=== PATIENT | female | born 1980 | race Caucasian/White ===

== ENCOUNTER 2019-03-13 13:08 | Emergency (ER) | payer SELFPAY ==
[~2019-03-13] VITALS: Ht 162.6 cm; Wt 48.6 kg
[2019-03-13 13:15] VITALS: Ht 162.6 cm; Wt 48.6 kg
[2019-03-13 13:36] LABS: HCG URINE NEGATIVE (NEGATIVE)
[2019-03-13 13:39] LABS: BASOPHILS 0.3 % (0-2); EOSINOPHILS 3.1 % (0-7); HEMOGLOBIN 15.1 g/dL (12-16); IMMATURE GRANULOCYTES 0.2 % (0-5); LYMPHOCYTES 47.9 % (15-50); MCH 31.3 pg (26.0-34.0); MCHC 32.8 g/dL (31.0-37.0); MCV 95.2 fL (80.0-100.0); MEAN PLATELET VOLUME 11.2 fL (7.4-10.4); MONOCYTES 2.7 % (2-11); NEUTROPHILS 45.8 % (40-80); PLATELET COUNT 209 10x3/uL (130-400); RBC 4.83 10x6/uL (4.00-5.40); RDW 14.7 % (11.5-14.5); WBC 9.2 10x3/uL (4.8-10.8)
[2019-03-13 13:40] LABS: UDS - AMPHET NEGATIVE QUAL (NEGATIVE); UDS - BARB NEGATIVE QUAL (NEGATIVE); UDS - BENZO NEGATIVE QUAL (NEGATIVE); UDS - COCAINE POSITIVE QUAL (NEGATIVE); UDS - OPIATE NEGATIVE QUAL (NEGATIVE); UDS - PCP NEGATIVE QUAL (NEGATIVE); UDS - THC POSITIVE QUAL (NEGATIVE)
[2019-03-13 13:52] LABS: CALC OSMOLALITY 282 mosm/kg (275-300); CALCIUM 8.8 mg/dL (8.5-10.1); CARBON DIOXIDE 29.7 mmol/L (21.0-32.0); CHLORIDE - SERUM 103 mmol/L (98-107); CREATININE - SERUM 0.8 mg/dL (0.6-1.3); GLUCOSE 153 mg/dL (74-106); POTASSIUM - SERUM 4.3 mmol/L (3.5-5.1); SODIUM 141 mmol/L (136-145); UREA NITROGEN 10 mg/dL (7-18); eGFR NON AFRICAN AMERICAN 85 mL/min (90-120)
[2019-03-13 13:59] LABS: ALBUMIN 3.9 g/dL (3.4-5.0); ALKALINE PHOSPHATASE 71 U/L (46-116); ALT (SGPT) 18 U/L (10-68); BILIRUBIN - TOTAL 0.34 mg/dL (0.2-1.3); PROTEIN - SERUM 7.3 g/dL (6.4-8.2)
[2019-03-13 14:04] LABS: AMORPHOUS SEDIMENT >1+ /lpf (NONE SEEN); APPEARANCE CLEAR (CLEAR); BACTERIA FEW /hpf (NEGATIVE); BILIRUBIN NEGATIVE (NEGATIVE); COLOR YELLOW (YELLOW); EPITHELIAL CELLS 0-5 /hpf (0-5); GLUCOSE NEGATIVE (NEGATIVE); KETONE NEGATIVE (NEGATIVE); MUCUS >1+ /lpf (NONE SEEN); NITRITE NEGATIVE (NEGATIVE); PROTEIN 1+ mg/dL (NEGATIVE); RED CELLS - URINE 0-5 /hpf (0-5); UROBILINOGEN NORMAL (NORMAL); WHITE CELLS - URINE 0-5 /hpf (NEGATIVE)
[2019-03-13 15:02] VITALS: BP 105/73
== END 2019-03-13 15:03 | disposition home or self-care (01) ==
LOC: D.ER 13:08
PROVIDERS: Family Medicine
DX: R55 Syncope and collapse (principal); W19.XXXA Unspecified fall, initial encounter; F17.210 Nicotine dependence, cigarettes, uncomplicated

== ENCOUNTER 2020-08-03 21:42 | Inpatient (IN) | payer MEDICAID ==
[~2020-08-03] VITALS: Ht 162.6 cm; Wt 106.6 kg
--- NOTE | 2020-08-03 21:55 | NUR ---
PT IN WHEELCHAIR IN WAITING ROOM, NOTED APNEIC AND HARDLY AROUSABLE TO TACTILE STIMULI. EDP BROUGHT TO BEDSIDE. FAMILY REPORTS SHE TOOK OXYCODONE AND XANAX. PT BROUGHT BACK TO TRAUMA ROOM AT THIS TIME, NRB APPLIED AND IV START INITIATED PT PLACED INTO HIGH FOWLERS POSITION AND NRB ESCALATED TO AMBU BAG. RESPIRATORY THERAPY TO ROOM AT THIS TIME.
[2020-08-03 22:00] VITALS: BP 108/73
--- NOTE | 2020-08-03 22:14 | NUR ---
PT INTUBATED BY ED PHYSICIAN AT THIS TIME. 7.5 ETT USED, 23 @ LIP
[2020-08-03 22:27] LABS: BASOPHILS 0.3 % (0-2); HEMATOCRIT 37.1 % (36.0-48.0); HEMOGLOBIN 12.1 g/dL (12-16); IMMATURE GRANULOCYTES 0.1 % (0-5); LYMPHOCYTE ABS# 2.99 10x3/uL (1.18-3.74); LYMPHOCYTES 41.1 % (15-50); MCH 31.3 pg (26.0-34.0); MCHC 32.6 g/dL (31.0-37.0); MCV 95.9 fL (80.0-100.0); MEAN PLATELET VOLUME 10.6 fL (7.4-10.4); MONOCYTES 5.6 % (2-11); NEUTROPHIL ABS# 3.55 10x3/uL (1.56-6.13); NEUTROPHILS 48.9 % (40-80); PLATELET COUNT 225 10x3/uL (130-400); RBC 3.87 10x6/uL (4.00-5.40); RDW 13.9 % (11.5-14.5); WBC 7.3 10x3/uL (4.8-10.8)
[2020-08-03 22:29] LABS: BILIRUBIN NEGATIVE (NEGATIVE); KETONE NEGATIVE (NEGATIVE); NITRITE POSITIVE (NEGATIVE); UROBILINOGEN NORMAL mg/dL (< 2)
[2020-08-03 22:33] LABS: BACTERIA MANY HPF (NONE SEEN); SQUAMOUS EPITHELIAL 0-5 HPF (0-4)
[2020-08-03 22:36] LABS: INR 1.1 (0.85-1.17); PROTIME 13.1 SECONDS (11.6-15.0)
[2020-08-03 22:37] LABS: UDS - AMPHET POSITIVE QUAL (NEGATIVE); UDS - BARB POSITIVE QUAL (NEGATIVE); UDS - BENZO POSITIVE QUAL (NEGATIVE); UDS - COCAINE POSITIVE QUAL (NEGATIVE); UDS - OPIATE NEGATIVE QUAL (NEGATIVE); UDS - PCP NEGATIVE QUAL (NEGATIVE); UDS - THC POSITIVE QUAL (NEGATIVE)
[2020-08-03 22:42] LABS: CALC OSMOLALITY 274 mosm/kg (275-300); CHLORIDE - SERUM 104 mmol/L (98-107); CREATININE - SERUM 0.8 mg/dL (0.6-1.3); GLUCOSE 145 mg/dL (74-106); POTASSIUM - SERUM 3.8 mmol/L (3.5-5.1); SODIUM 137 mmol/L (136-145); UREA NITROGEN 6 mg/dL (7-18); eGFR NON AFRICAN AMERICAN 85 mL/min (90-120)
[2020-08-03 22:48] LABS: ALBUMIN 3.5 g/dL (3.4-5.0); ALKALINE PHOSPHATASE 60 U/L (30-120); ALT (SGPT) 22 U/L (10-68); BILIRUBIN - TOTAL 0.25 mg/dL (0.2-1.3); PROTEIN - SERUM 6.8 g/dL (6.4-8.2)
--- NOTE | 2020-08-03 22:50 | NUR ---
EDP AND NURSE UPDATED FATHER IN LAW WITH PLAN OF CARE. RECEIVED CALL FROM NIRMAL CHAPIN, MOTHER IN LAW. [phone] AND UPDATED HER WITH POC WELL.
--- NOTE | 2020-08-03 22:58 | NUR ---
UNABLE TO ASSESS [place] SUICIDE RISK SCALE AT THIS TIME.
[2020-08-03 23:00] VITALS: BP 118/82
--- NOTE | 2020-08-03 23:36 | NUR ---
PT ATTEMPTING TO EXTUBATE SELF. GUY HENDERSON APRN AT BEDSIDE. SEDATION INCREASED AND CHEST XR ORDERED.
--- NOTE | 2020-08-03 23:55 | NUR ---
EDP AT BEDSIDE TO ADJUST ETT PLACEMENT. PT BECAME ALERT AND BITING TUBE. SEE EMAR. MEDICATIONS GIVEN PER VERBAL ORDER. NOW, ETT 22 @ LIP. SECURED.
[2020-08-04] VITALS (26 sets, daily range): BP systolic 114–152; BP diastolic 62–104; Ht 162.6 cm; Wt 106.6 kg
[2020-08-04 05:14] LABS: CALC OSMOLALITY 272 mosm/kg (275-300); CALCIUM 7.6 mg/dL (8.5-10.1); CARBON DIOXIDE 25.4 mmol/L (21.0-32.0); CHLORIDE - SERUM 107 mmol/L (98-107); CREATININE - SERUM 0.6 mg/dL (0.6-1.3); PHOSPHOROUS 3.1 mg/dL (2.5-4.9); POTASSIUM - SERUM 3.7 mmol/L (3.5-5.1); SODIUM 138 mmol/L (136-145); UREA NITROGEN 6 mg/dL (7-18); eGFR NON AFRICAN AMERICAN > 90 mL/min (90-120)
[2020-08-04 05:24] LABS: GLUCOSE 75 mg/dL (74-106)
[2020-08-04 05:40] LABS: BASOPHILS 0.2 % (0-2); EOSINOPHILS 3.1 % (0-7); HEMATOCRIT 40.1 % (36.0-48.0); HEMOGLOBIN 13.2 g/dL (12-16); IMMATURE GRANULOCYTES 0.2 % (0-5); LYMPHOCYTE ABS# 2.96 10x3/uL (1.18-3.74); LYMPHOCYTES 32.7 % (15-50); MCH 31.5 pg (26.0-34.0); MCHC 32.9 g/dL (31.0-37.0); MCV 95.7 fL (80.0-100.0); MEAN PLATELET VOLUME 11.4 fL (7.4-10.4); MONOCYTES 5.1 % (2-11); NEUTROPHILS 58.7 % (40-80); RBC 4.19 10x6/uL (4.00-5.40); RDW 14.1 % (11.5-14.5)
[2020-08-04 05:41] LABS: PLATELET COUNT 172 10x3/uL (130-400)
[2020-08-05] VITALS (23 sets, daily range): BP systolic 77–126; BP diastolic 51–95
[2020-08-05 04:11] LABS: BASOPHILS 0.3 % (0-2); EOSINOPHILS 3.2 % (0-7); HEMATOCRIT 38.9 % (36.0-48.0); HEMOGLOBIN 12.8 g/dL (12-16); IMMATURE GRANULOCYTES 0.1 % (0-5); LYMPHOCYTE ABS# 2.44 10x3/uL (1.18-3.74); LYMPHOCYTES 32.3 % (15-50); MCH 30.8 pg (26.0-34.0); MCHC 32.9 g/dL (31.0-37.0); MEAN PLATELET VOLUME 10.6 fL (7.4-10.4); MONOCYTES 7.9 % (2-11); NEUTROPHIL ABS# 4.24 10x3/uL (1.56-6.13); NEUTROPHILS 56.2 % (40-80); PLATELET COUNT 181 10x3/uL (130-400); RBC 4.16 10x6/uL (4.00-5.40); RDW 13.6 % (11.5-14.5); WBC 7.6 10x3/uL (4.8-10.8)
[2020-08-05 04:23] LABS: MCV 93.5 fL (80.0-100.0)
[2020-08-05 04:35] LABS: ALBUMIN 2.7 g/dL (3.4-5.0); ALKALINE PHOSPHATASE 64 U/L (30-120); BILIRUBIN - TOTAL 0.22 mg/dL (0.2-1.3); CARBON DIOXIDE 22.6 mmol/L (21.0-32.0); CHLORIDE - SERUM 106 mmol/L (98-107); CREATININE - SERUM 0.6 mg/dL (0.6-1.3); GLUCOSE 79 mg/dL (74-106); MAGNESIUM - SERUM 1.9 mg/dL (1.8-2.4); PHOSPHOROUS 3.2 mg/dL (2.5-4.9); POTASSIUM - SERUM 3.6 mmol/L (3.5-5.1); PROTEIN - SERUM 5.9 g/dL (6.4-8.2); SODIUM 137 mmol/L (136-145); eGFR NON AFRICAN AMERICAN > 90 mL/min (90-120)
[2020-08-05 04:42] LABS: ALT (SGPT) 16 U/L (10-68); CALC OSMOLALITY 269 mosm/kg (275-300); UREA NITROGEN 3 mg/dL (7-18)
--- NOTE | 2020-08-05 11:28 | NUR ---
DR HUTSON NOTIFIED OF RAHEEM OK TO PULL ETT, NOTIFIED RT @ [id number]
--- NOTE | 2020-08-05 12:46 | NUR ---
SPOKE WITH PT ON WHAT SHE REMEMBERS HAPPENED TO BRING HER TO THE HOSPITAL. PT STATES SHE REMEBERS BEING WITH HER IN HER ROOM, SHE SAID SHE TOOK SOME BENZOS BUT DOESNT REMEBER ANYTHING AFTER. INFORMED PT OF TOXICOLOGY REPORT AND PT SEEMED SUPRISED AND STATES "I DONT REMEMBER DRINKING ALCOHOL OR MIXING SO MUCH, IT WASN'T MY INTENTION TO HARM MYSELF." SHE STATES THEY WERE JUST PARTYING AND HAVING A GOOD TIME. WILL SPEAK WITH DURING VISITAION LATER TODAY. NOTIFIED PT WANTS HIM TO VISIT AND BRING HER CELL PHONE
--- NOTE | 2020-08-05 13:05 | NUR ---
EXTUBATED AT 1125 TO NC @ 2LPM NO SOB NOTED
--- NOTE | 2020-08-05 15:57 | NUR ---
PT HAD ICE CHIPS ABOUT 12PM. TOLERATED WELL, NGT CLAMPED. PT TOLERATED WELL WITH NO N/V. NGT REMOVED AND PT GIVEN WATER. NO DISTRESS NOTED DURING SWALLOW EVAL. ADVANCED DIET TO CLEMENTE GILLESPIE
--- NOTE | 2020-08-05 20:45 | NUR ---
REC'D REPORT FOR DAY SHIFT AND ASSUMED CARE. INITIAL ASSESSMENT PER FLOW SHEET. AT BEDSIDE, HAD FALLED ASLEEP IN BED WITH PT AND HAD TO WAKE HIM TO TELL HIM THAT VISITING TIME WAS OVER. PT REQUESTED SOME JELLO AND WAS GIVEN SOME. WILL MONITOR.
[2020-08-06] VITALS (15 sets, daily range): BP systolic 90–113; BP diastolic 58–75
--- NOTE | 2020-08-06 | NUR ---
HAS BEEN LAYING QUIETLY, EYES CLOSED FOR PAST COUPLE OF HOURS. NO SIGNS OF DISTRESS. HAS BEEN 99-100% ON ROOM AIR. HAD BEEN ENCOURAGING HER TO USE INCENTIVE SPIROMETER EVERY TIME SHE WAS AWAKE. HAS A VERY PRODUCTIVE COUGH
[2020-08-06 04:48] LABS: BASOPHILS 0.2 % (0-2); EOSINOPHILS 2.9 % (0-7); HEMATOCRIT 33.5 % (36.0-48.0); HEMOGLOBIN 11.1 g/dL (12-16); LYMPHOCYTE ABS# 1.59 10x3/uL (1.18-3.74); LYMPHOCYTES 35.8 % (15-50); MCH 30.7 pg (26.0-34.0); MCHC 33.1 g/dL (31.0-37.0); MCV 92.5 fL (80.0-100.0); MEAN PLATELET VOLUME 10.6 fL (7.4-10.4); MONOCYTES 4.3 % (2-11); NEUTROPHIL ABS# 2.52 10x3/uL (1.56-6.13); NEUTROPHILS 56.8 % (40-80); PLATELET COUNT 182 10x3/uL (130-400); RBC 3.62 10x6/uL (4.00-5.40); RDW 13.4 % (11.5-14.5)
[2020-08-06 04:49] LABS: WBC 4.4 10x3/uL (4.8-10.8)
--- NOTE | 2020-08-06 05:00 | NUR ---
CONT TO LIE QUIETLY W/O COMPLAINT. VS REMAIN STABLE. LAB HERE TO DRAW BLOOD. WILL CONT WITH CURRENT PLAN OF CARE
[2020-08-06 05:03] LABS: ALBUMIN 2.6 g/dL (3.4-5.0); ALKALINE PHOSPHATASE 56 U/L (30-120); ALT (SGPT) 16 U/L (10-68); CALCIUM 7.8 mg/dL (8.5-10.1); CARBON DIOXIDE 25.7 mmol/L (21.0-32.0); CHLORIDE - SERUM 109 mmol/L (98-107); CREATININE - SERUM 0.6 mg/dL (0.6-1.3); GLUCOSE 97 mg/dL (74-106); PHOSPHOROUS 3.1 mg/dL (2.5-4.9); POTASSIUM - SERUM 3.2 mmol/L (3.5-5.1); PROTEIN - SERUM 5.7 g/dL (6.4-8.2); SODIUM 140 mmol/L (136-145); eGFR NON AFRICAN AMERICAN > 90 mL/min (90-120)
[2020-08-06 05:05] LABS: CALC OSMOLALITY 275 mosm/kg (275-300); UREA NITROGEN 4 mg/dL (7-18)
--- NOTE | 2020-08-06 08:30 | NUR ---
NOTED CONSULT FOR PSYCH TO SEE PT REGARDING OVERDOSE. FAX SENT TO ASSISTED, CONFIRMATION RECIEVED.
--- NOTE | 2020-08-06 08:58 | NUR ---
DR LEE ROUNDED ON PT. HE STATED OKAY FOR HER TO GO TO THE FLOOR AFTER DR CHAVEZ GROUP HAS SEEN PT AND EVALUATED. PT STILL STATES SHE IS NOT SUICIDAL, HAS HAD NO INTENTIONS OF HARIMING HERSELF, AND DOES NOT RECALL THE EVENTS WHICH LEAD HER HERE. SHE IS CALM AND COMPLIANT. SHE STATES SHE IS SLEEPY BECAUSE SHE HAD NOT HAD A LOT OF SLEEP LAST NIGHT. VSS. WILL CONTINUE PLAN OF CARE.
--- NOTE | 2020-08-06 12:51 | NUR ---
FERGUSON DCD AT THIS TIME, CATHETER TIP INTACT. VSS. NO ACUTE DISTRESS NOTED. ALSO PRESENTED FLUTTER TO PT AND INSTRUCTED HOW TO USE. SHE FOLLOWED INSTURCTIONS WELL. SHE STATES SHE WILL BE ABLE TO USE IT 5 TIMES A DAY. WILL CONTINUE PLAN OF CARE.
--- NOTE | 2020-08-06 13:21 | NUR ---
CONTINENT VOID NOTED AT THIS TIME VIA BEDSIDE TOILET. PT PROVIDED OWN EMMA CARE. VSS. WILL CONTINUE PLAN OF CARE.
--- NOTE | 2020-08-06 15:15 | NUR ---
PER DR LEE, PT OKAY TO TRANSFER TO THE FLOOR AFTER PSYCH HAS SEEN HER. CALLED PSYCH TO SEE IF THE APPAREL SALES LEADER PROVIDER FOR DR ABEL COULD CALL AND COME SEE PT. SPOKE WITH SATHISH CALZADA, WHO STATED HE HAD ALREADY ROUNDED TODAY, AND WAS NOT COMING BACK TODAY. ORDERS RECIEVED TO CALL NURSING HOME TO HAVE A NURSE COME AND DO THE PSYCH EVAL.
--- NOTE | 2020-08-06 15:37 | NUR ---
ZHENG BARBOSA POLICY ANALYST FOR DR ABEL, NOTIFIED OF PATIENT'S BEHAVIOR AND ASSESSMENT RESULTS. PATIENT IS A LOW RISK. SHE DENIES BEING SUICIDAL. STATES SHE TOOK THE PILLS FOR RECREATIONAL USE AND DID NOT INTENTIONALLY OVERDOSE. RESOURCES GIVEN AND SHE VERBALIZES UNDERSTANDING.
[2020-08-06] MEDS ORDERED: OMNICEF300 MG PO (17:04)
--- NOTE | 2020-08-06 17:20 | NUR ---
PER DR LEE, SINCE PT DEEMED LOW RISK AFTER PSYCH EVAL HE IS DISCHARGING HER HOME. PT CONTINUES TO STATE SHE IS NOT SUICIDAL, AND HAS NO WISHES TO HARM HERSELF.
--- NOTE | 2020-08-06 17:22 | NUR ---
SPOKE WITH PTS , HE STATES HE WILL BE BY SOON TO PICK HER UP.
--- NOTE | 2020-08-06 18:03 | NUR ---
PT DISCHARGED HOME AT THIS TIME WITH FAMILY MEMBER VIA PERSONAL VEHICLE. SHE WALKED OUT OF THE UNIT TO THE VEHICLE PER HER DECISION. SHE LEFT WITH ALL PERSONAL ITEMS INCLUDING JEWELRY. IV TO LT AC DCD, CATHETER TIP INTACT. IV RT AC DCD CATHETER TIP INTACT. SHE STATES SHE WILL BE ABLE TO OBTAIN HER PRESCRIPTIONS, AND UNDERSTANDS SHE NEEDS TO MAKE A FOLLOWUP WITH HER PCP; SHE STATES SHE DOES NOT HAVE A PCP, BUT MIGHT TRY TO MAKE AN APPT WITH DR LEE SINCE HE HAD SEEN HER THIS VISIT. NO FURTHER ACTIONS.
--- NOTE | 2020-08-06 18:14 | MORECARE ---
CASE MANAGEMENT DISCHARGE SUMMARY PATIENT: JOSE CHAPIN UNIT: [id number] ADM DATE: 08/03/20 AGE: 39 : 80 SEX: F ROOM/BED: D2303 AUTHOR: ESTEFANY,DOC PHYSICIAN: REFERRING PHYSICIAN: BRANT LEE MD DATE OF SERVICE: 08/06/20 Case Management Discharge Planning Summary DCP REVIEW SUMMARY ANTICIPATED D/C DATE: 08/06/2020 EXPECTED LOS : 3 CASE STATUS: DCP Initiated INITIAL REVIEW: 08/03/2020 INITIAL REVIEWER: Aldo Brumfield FINAL DISCHARGE DISPOSITION: : FINAL REVIEWER: FINAL REVIEW DATE: DCP Focus Questions & Answers DCP REV -DCP Review Added on: 08/06/20 6:09 pm QUESTION: ANSWER DCP Screen High Risk Factors: : None Walking limitation: Patient stated self rated walking limitation present? : No Age: : 18 - 44 Prior living environment: : Lives with others Disability ranking: : Grade 1: No significant disability DCP Evaluation Patient's ability to cope with chronic illness : d. No chronic illness Mental health screen: : No mental health history Would patient like to participate in any Care Coordination programs (if applicable): : Not applicable DCP Re-evaluation Would patient like to participate in any Care Coordination programs (if applicable): : Not applicable PATIENT: JOSE CHAPIN ENCOUNTER: [id number] MEDICAL RECORD#: [id number] ADMISSION DATE: 08/03/2020 DISCHARGE DATE: 08/06/2020 ATTENDING MD: : AGE: 39 MARITAL STATUS: M DC PLAN ID: [id number] FACILITY: [facility] PRINTED ON: 08/06/20 18:14 CT All edits/amendments must be made on the electronic document DICTATION DATE: 08/06/201813 SUPERVISOR MOLD CONSTRUCTION: KINSEY 08/06/201813 RPT#: [id number] DC DATE:08/06/20 STATUS: DIS IN [facility] [address] [place] [address] END OF REPORT
--- NOTE | 2020-08-06 18:25 | MORECARE ---
CASE MANAGEMENT DISCHARGE SUMMARY PATIENT: JOSE CHAPIN UNIT: [id number] ADM DATE: 08/03/20 AGE: 39 : 80 SEX: F ROOM/BED: D.2303 AUTHOR: EVAN ALLISON PHYSICIAN: REFERRING PHYSICIAN: BRANT LEE MD DATE OF SERVICE: 08/06/20 Case Management Discharge Planning Summary COMMENTS ENTERED DATE: 08/06/20 18:15 CT COMMENT TYPE: Discharge Planning REVIEWER: Aldo Brumfield NO NEEDS. CM met with patient to complete DC plan and to evaluate needs. Patient lives independently with her spouse, Jumana Chapin ([phone]). At discharge, the patient plans to return home and feels this is a safe discharge. CM discussed availability of home health, rehab services, and medical equipment. Patient declined HHS, SNF, IPR, and DME. Patient voiced no other needs at this time and is satisfied with DC plan. Transportation provider at discharge will be with her father in law, Duarte Anton. CM will continue to follow and will assist as needed with dc plans/needs. DCP REVIEW SUMMARY ANTICIPATED D/C DATE: 08/06/2020 EXPECTED LOS : 3 CASE STATUS: DCP Initiated INITIAL REVIEW: 08/03/2020 INITIAL REVIEWER: Aldo Brumfield FINAL DISCHARGE DISPOSITION: : FINAL REVIEWER: FINAL REVIEW DATE: DCP Focus Questions & Answers DCP REV -DCP Review Added on: 08/06/20 6:09 pm QUESTION: ANSWER DCP Screen High Risk Factors: : None Walking limitation: Patient stated self rated walking limitation present? : No Age: : 18 - 44 Prior living environment: : Lives with others Disability ranking: : Grade 1: No significant disability DCP Evaluation Patient's ability to cope with chronic illness : d. No chronic illness Mental health screen: : No mental health history Would patient like to participate in any Care Coordination programs (if applicable): : Not applicable Patient gives permission to discuss discharge plans with: (name, relationship and number) : JUMANA CHAPIN, SPOUSE, Physical Status: : Independent with ADL's Baseline cognitive status: : *Oriented to person, place, situation, time and present Living Arrangements: : Home with Spouse/Significant Other Pharmacy name(s): : [facility] [address] Does Patient have transportation to get home and to follow-up medical appointments when discharged from the hospital? : Yes Does the patient have electricity at home? : Yes Does the patient have running water in their house? : Yes Equipment in use: : None Patient's current cognitive status: : *Oriented to person, place, situation, time and present Functional screen assessment: : Basic needs can adequately be met by self Patient with capacity for self-care or can be cared for in same environment as prior to hospitalization? : Yes Does the patient have the ability to pay for or attain post discharge needs / services? : Yes Is there a likelihood that the patient will require additional services to return to the preadmission environment? : No Patient and/or caregiver agree upon recommended discharge plan? : Yes Equipment needed for post hospitalization: : None Physical environment modification needed / anticipated for discharge: : No DCP Re-evaluation Would patient like to participate in any Care Coordination programs (if applicable): : Not applicable PATIENT: JOSE CHAPIN ENCOUNTER: [id number] MEDICAL RECORD#: [id number] ADMISSION DATE: 08/03/2020 DISCHARGE DATE: 08/06/2020 ATTENDING MD: ASHLEE: AGE: 39 MARITAL STATUS: M DC PLAN ID: [id number] FACILITY: [facility] PRINTED ON: 08/06/20 18:25 CT All edits/amendments must be made on the electronic document DICTATION DATE: 08/06/201824 CAD APPLICATION SUPPORT SPECIALIST: KINSEY 08/06/201824 RPT#: [id number] DC DATE:08/06/20 STATUS: DIS IN [place] [address] [place] [address] END OF REPORT
--- NOTE | 2020-08-07 15:39 | MORECARE ---
CASE MANAGEMENT DISCHARGE SUMMARY PATIENT: JOSE CHAPIN UNIT: [id number] ADM DATE: 08/03/20 AGE: 39 : 80 SEX: F ROOM/BED: D.2303 AUTHOR: EVAN ALLISON PHYSICIAN: REFERRING PHYSICIAN: BRANT LEE MD DATE OF SERVICE: 08/07/20 Case Management Discharge Planning Summary COMMENTS ENTERED DATE: 08/06/20 18:15 CT COMMENT TYPE: Discharge Planning REVIEWER: Aldo Brumfield NO NEEDS. CM met with patient to complete DC plan and to evaluate needs. Patient lives independently with her spouse, Jumana Chapin ([phone]). At discharge, the patient plans to return home and feels this is a safe discharge. CM discussed availability of home health, rehab services, and medical equipment. Patient declined HHS, SNF, IPR, and DME. Patient voiced no other needs at this time and is satisfied with DC plan. Transportation provider at discharge will be with her father in law, Duarte Anton. CM will continue to follow and will assist as needed with dc plans/needs. DCP REVIEW SUMMARY ANTICIPATED D/C DATE: 08/06/2020 EXPECTED LOS : 3 CASE STATUS: DCP Initiated INITIAL REVIEW: 08/03/2020 INITIAL REVIEWER: Aldo Brumfield FINAL DISCHARGE DISPOSITION: : FINAL REVIEWER: FINAL REVIEW DATE: DCP Focus Questions & Answers DCP REV -DCP Review Added on: 08/06/20 6:09 pm QUESTION: ANSWER DCP Screen High Risk Factors: : None Walking limitation: Patient stated self rated walking limitation present? : No Age: : 18 - 44 Prior living environment: : Lives with others Disability ranking: : Grade 1: No significant disability DCP Evaluation Patient's ability to cope with chronic illness : d. No chronic illness Mental health screen: : No mental health history Would patient like to participate in any Care Coordination programs (if applicable): : Not applicable Patient gives permission to discuss discharge plans with: (name, relationship and number) : JUMANA CHAPIN, SPOUSE, Physical Status: : Independent with ADL's Baseline cognitive status: : *Oriented to person, place, situation, time and present Living Arrangements: : Home with Spouse/Significant Other Pharmacy name(s): : [facility] [address] Does Patient have transportation to get home and to follow-up medical appointments when discharged from the hospital? : Yes Does the patient have electricity at home? : Yes Does the patient have running water in their house? : Yes Equipment in use: : None Patient's current cognitive status: : *Oriented to person, place, situation, time and present Functional screen assessment: : Basic needs can adequately be met by self Patient with capacity for self-care or can be cared for in same environment as prior to hospitalization? : Yes Does the patient have the ability to pay for or attain post discharge needs / services? : Yes Is there a likelihood that the patient will require additional services to return to the preadmission environment? : No Patient and/or caregiver agree upon recommended discharge plan? : Yes Equipment needed for post hospitalization: : None Physical environment modification needed / anticipated for discharge: : No DCP Re-evaluation Would patient like to participate in any Care Coordination programs (if applicable): : Not applicable PATIENT: JOSE CHAPIN ENCOUNTER: [id number] MEDICAL RECORD#: [id number] ADMISSION DATE: 08/03/2020 DISCHARGE DATE: 08/06/2020 ATTENDING MD: ASHLEE: AGE: 39 MARITAL STATUS: M DC PLAN ID: [id number] FACILITY: [facility] PRINTED ON: 08/07/20 15:39 CT All edits/amendments must be made on the electronic document DICTATION DATE: 08/07/201538 SHIPMASTER: KINSEY 08/07/201538 RPT#: [id number] DC DATE:08/06/20 STATUS: DIS IN [place] [id number] [place] [address] END OF REPORT
[2020-08-08 17:10] LABS: AEROBE ID Preliminary report (())
== END 2020-08-06 18:06 | disposition home or self-care (01) | DRG 917 ==
LOC: D.ER 21:42 → D.ICU 23:31
PROVIDERS: Family Medicine; ADMIT Family Medicine; ATTEND Family Medicine
PROC: 0BH17EZ Insertion of Endotracheal Airway into Trachea, Via Natural or Artificial Opening (ICD-10-PCS; principal; 2020-08-03)
PROC: 5A1945Z Respiratory Ventilation, 24-96 Consecutive Hours (ICD-10-PCS; 2020-08-03)
DX: T65.91XA Toxic effect of unspecified substance, accidental (unintentional), initial encounter (principal); J96.01 Acute respiratory failure with hypoxia; N39.0 Urinary tract infection, site not specified; F15.10 Other stimulant abuse, uncomplicated; F14.10 Cocaine abuse, uncomplicated; F12.10 Cannabis abuse, uncomplicated; F13.10 Sedative, hypnotic or anxiolytic abuse, uncomplicated